=== PATIENT | female | born 1960 | race Caucasian/White ===

== ENCOUNTER → 2021-03-29 12:45 | Outpatient (CLI) | payer BC, SELFPAY ==
[2021-03-23 10:41] VITALS: BMI 35.6
--- NOTE | 2021-03-29 12:49 | US_ITS ---
STUDY: THYROID ULTRASOUND REASON FOR EXAM: Female, 61 years old. Nodular goiter, TI-RAD please TECHNIQUE: Ultrasound evaluation of the thyroid was performed with real-time and static vásquez-scale imaging. COMPARISON: None. FINDINGS: RIGHT LOBE: The right lobe of the thyroid gland measures 4.3 x 1.3 x 1.7 cm. There is a homogeneous echotexture. Nodule 1:10 x 13 x 5 mm solid hypoechoic wider than tall smoothly marginated nodule with no echogenic foci (TR 4) in the inferior right lobe and follow-up ultrasound is recommended in one year. LEFT LOBE: The left lobe of the thyroid gland measures 4.4 x 1.4 x 1.7 cm. There is a homogeneous echotexture. Nodule 2:10 x 8 x 7 mm mixed cystic and solid isoechoic wider than tall smoothly marginated nodule with no echogenic foci (TR 2) in the mid left lobe. Nodule 3:13 x 9 x 9 mm solid hypoechoic wider than tall smoothly marginated nodule with no echogenic foci (TR 4) in the mid left lobe and follow-up ultrasound is recommended in one year. ISTHMUS: The isthmus measures 4 mm thick. . The regional lymph nodes are normal. US/Thyroid IMPRESSION: Multinodular thyroid gland and follow-up ultrasound is recommended in one year. Electronically Signed: Tyree Sainz MD at 8:06 EDT Tel , Service support ,
== END ==
PROVIDERS: PCP Family Medicine; Referring Provider Internal Medicine Endocrinology, Diabetes & Metabolism; Visit Provider Internal Medicine Endocrinology, Diabetes & Metabolism
DX: E04.9 Nontoxic goiter, unspecified (principal)
CPT/HCPCS: 76536

== ENCOUNTER → 2022-04-25 | Outpatient (CLI) | payer MEDICARE, SELFPAY ==
--- NOTE | 2022-04-25 12:40 | US_ITS ---
STUDY: THYROID ULTRASOUND REASON FOR EXAM: Female, 62 years old. History of thyroid nodules. TECHNIQUE: Ultrasound evaluation of the thyroid was performed with real-time and static vásquez-scale imaging. COMPARISON: Comparison is made with prior examination dated 03/29/2021. FINDINGS: RIGHT LOBE: The right lobe of the thyroid gland measures 4.1 cm x 1.4 cm x 1.2 cm. There is a homogeneous echotexture. Multiple hypoechoic solid nodules as well as solid and cystic nodules are seen. The largest nodule measures 1 cm x 0.5 cm x 1 cm in the lower pole. LEFT LOBE: The left lobe of the thyroid gland measures 4 cm x 1.1 cm x 1.3 cm. There is a homogeneous echotexture. Once again, multiple nodules are seen throughout the left lobe. The largest nodule measures 1.4 cm x 0.9 cm x 0.8 cm. This is solid and cystic nodule in the midpole. This is essentially unchanged. ISTHMUS: The isthmus measures 3 mm. There is a 6 mm x 4 mm x 3 mm solid/cystic nodule in the left side of the isthmus. The regional lymph nodes are normal. US/Thyroid IMPRESSION: Multinodular thyroid gland as described above. There has been no change. Electronically Signed: Jeffry Tavarez MD at 14:19 EDT ,
== END | disposition home or self-care (01) ==
LOC: US 12:39
PROVIDERS: PCP Family Medicine; Referring Provider Internal Medicine Endocrinology, Diabetes & Metabolism; Visit Provider Internal Medicine Endocrinology, Diabetes & Metabolism
DX: E04.9 Nontoxic goiter, unspecified (principal); E11.9 Type 2 diabetes mellitus without complications; E66.9 Obesity, unspecified
CPT/HCPCS: 76536

== ENCOUNTER → 2024-05-13 | Outpatient (CLI) | payer MEDICARE, SELFPAY ==
--- NOTE | 2024-05-13 13:03 | US_ITS ---
INDICATION: Compare 2021 EXAMINATION: Ultrasound US Thyroid (eg thyroid, parathyroid, parotid) TECHNIQUE: Bonilla scale and color doppler imaging was performed of the thyroid gland. COMPARISON: Prior study dated: 04/25/2022 FINDINGS: RIGHT THYROID LOBE: 4.1 x 1.6 x 1.5 cm. Previously 4.1 x 1.4 x 1.2 cm. Parenchyma: The gland echotexture is homogenous. Thyroid vascularity is normal. LEFT THYROID LOBE: 3.9 x 1.3 x 1.5 cm. Previously 4 x 1.1 x 1.3 cm. Parenchyma: The gland echotexture is homogenous. Thyroid vascularity is normal. ISTHMUS: 0.3 cm in maximum AP dimension. Previously 0.3 cm. Estimated total number of nodules greater than equal to 1 cm: 3. Certified [employer] nodules are described as follows: 1. Location: Right mid Size: 1.1 x 0.8 x 0.5 cm, volume 0.24 mL. Previously: 1 x 0.5 x 0.9 cm, volume 0.25 mL. Nodule characteristics: Composition: Solid or almost completely solid (2). Echogenicity: Hypoechoic (2). Shape: Wider than tall (0). Margins: Smooth (0). Echogenic Foci: None (0). ACR TI-RADS total points: 4. Previous 4. ACR TI-RADS category: 4. Previous 4 2. Location: Left mid Size: 1.5 x 0.9 x 0.9 cm, volume 0.68 mL. Previously: 1.4 x 0.8 x 0.9 cm, volume 0.51 mL. Nodule characteristics: Composition: Solid or almost completely solid (2). Echogenicity: Isoechoic (1). Shape: Wider than tall (0). Margins: Smooth (0). Echogenic Foci: None (0). ACR TI-RADS total points: 3. Previous 3. ACR TI-RADS category: 3. Previous 3 3. Location: Left mid Size: 0.9 x 1 x 0.8 cm, volume 0.35 mL. Previously: 0.9 x 0.6 x 0.7 cm, volume 0.22 mL. Nodule characteristics: Composition: Mixed cystic and solid (1). Echogenicity: Hypoechoic (2). Shape: Wider than tall (0). Margins: Smooth (0). Echogenic Foci: None (0). ACR TI-RADS total points: 3. Previous 3. ACR TI-RADS category: 3. Previous 3 LYMPH NODES: No lymphadenopathy is seen in the tissue surrounding the thyroid gland. US/Thyroid IMPRESSION: Multiple thyroid nodules are again noted, without significant change from prior imaging. Based on size and appearance, 2 year follow-up would be appropriate. ACR TI-RADS RECOMMENDATION REFERENCE: Ultrasound-guided fine-needle aspiration, follow-up ultrasound, no further follow-up. *TR 1 (0 points) and TR 2 (2 points): No FNA or follow-up. *TR 3 (3 points): FNA if more than or equal to 2.5 cm in maximum dimension. Follow-up ultrasound in 1, 3, and 5 years if 1.5 to 2.4 cm in maximum dimension. *TR 4 (4-6 points): FNA if more than or equal to 1.5 cm in maximum dimension. Follow-up ultrasound in 1, 2, 3, and 5 years if 1 to 1.4 cm in maximum dimension. *TR 5 (more than or equal to 7 points): FNA if more than or equal to 1 cm in maximum dimension. Follow-up ultrasound every year for 5 years if 0.5 to 0.9 cm in maximum dimension. *TR 3, TR 4, or TR 5 nodules that are below the size threshold for follow-up receive no follow-up. Electronically Signed: Bandar Valles MD at 8:53 EDT ,
== END | disposition home or self-care (01) ==
PROVIDERS: PCP Family Medicine; Referring Provider Internal Medicine Endocrinology, Diabetes & Metabolism; Visit Provider Internal Medicine Endocrinology, Diabetes & Metabolism
DX: E04.9 Nontoxic goiter, unspecified (principal); E11.9 Type 2 diabetes mellitus without complications
CPT/HCPCS: 76536